=== PATIENT | male | born 1975 | race Caucasian/White ===

== ENCOUNTER 2021-05-16 11:58 | Day surgery (SDC) | payer BC ==
[2021-05-16] MEDS ORDERED: Sodium Chloride 0.9(Preservative Free) 10 ML IJ ONE (11:59)
[2021-05-16] MEDS ORDERED: Depo-Medrol 40 MG/ML IM ONE (11:59)
[2021-05-16] MEDS ORDERED: DIPRIVAN 200 MG/20 ML IV ONE (13:55)
--- NOTE | 2021-05-16 15:09 | XRAY ---
Indication: Right L4-S1 transforaminal REEMA. Intraoperative fluoroscopy provided for 30 seconds. 2 digital spot image submitted for interpretation demonstrates posterior needle tips projecting over the expected right L4 and L5 nerve roots. Small amount of contrast injected for needle tip placement. Correlate with intraoperative findings/report.
[2021-05-16] MEDS ORDERED: Lactated Ringers 1,000 ML IV ONE (15:33)
--- NOTE | 2021-05-16 16:50 | XRAY ---
30 seconds fluoroscopy time in surgery for right L4-S1 transforaminal REEMA.
== END 2021-05-16 14:25 | disposition home or self-care (01) ==
LOC: SDC-PAIN 11:58
PROVIDERS: ATTEND Psychiatry & Neurology Pain Medicine
DX: M54.16 Radiculopathy, lumbar region (principal); D64.9 Anemia, unspecified; J44.9 Chronic obstructive pulmonary disease, unspecified; I10 Essential (primary) hypertension; E78.5 Hyperlipidemia, unspecified; Z79.899 Other long term (current) drug therapy
CPT/HCPCS: 64483; 64484; 72100; 77003; J1030; J2704; Q9966

== ENCOUNTER 2021-12-13 09:07 | Emergency (ER) | payer BC, OTHER ==
[2021-12-13 09:26] VITALS: O2SAT 99
[2021-12-13] MEDS ORDERED: TYLENOL 325 MG PO ONE (09:44)
--- NOTE | 2021-12-13 09:50 | ERPHSYRPT ---
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 when an as sociate pushed a pallete and it was not seen by the pt and his left ankle hit it and he fell backwards and landed on the concrete hitting his head, pt's head, back, right elbow and the back of his left leg hurt Triage Nursing Assessment: Pt was brought to the ER by [facility] management, vitals wnl, rates overall pain as 5/10, small lump on top back of head, no bruising noted anywhere, back pain is noted to be lower to middle portion, denies LOC, denies N&V, pt does have a headache, doesn't appear to be in any distress Physician History: 46 years old presented in the ER with a chief complaint of fall and injury to the head and\right elbow. Patient reports he was working at [facility] and accidentally got tripped after a pallet hit him on his left leg leading to fall backward hitting his head against the concrete. Complaining of mild to moderate headache of the occipitoparietal area with some pain in the mid and lower back and right elbow which he hit against the ground and has history of surgical intervention in the past. Denies loss of consciousness. No nausea or vomiting, no confusion or altered mentation. Denies any chest pain palpitations or shortness of breath. Occurred: just prior to arrival Reason for Fall: tripped, fell from standing pos Injuries/Pain Location: head, upper extremity, back Loss of Consciousness: no loss of consciousness Quality: sharpness Severity of Pain-Max: moderate Severity of Pain-Current: mild Modifying Factors: Worsens With: movement Associated Symptoms (Fall): back pain, extremity injury, headache, muscle spasms, No confusion, No chest pain, No dizziness, No lightheadedness, No nausea, No neck pain, No ringing in ears, No seizures, No shortness of breath, No slurred speech, No trouble walking, No vomiting, No vision changes Allergies/Adverse Reactions: acetaminophen [From Vicodin] Allergy (Verified 12/13/21 09:26) hydrocodone [From Vicodin] Allergy (Verified 12/13/21 09:26) Home Medications: Atorvastatin Calcium 10 mg PO DAILY 12/13/21 [History] Duloxetine HCl 60 mg PO DAILY 12/13/21 [History] Fluticasone Propion/Salmeterol [Fluticasone-Salmeterol 500-50] 1 inh PO UD 12/13/21 [History] Losartan/Hydrochlorothiazide [Losartan-Hctz 50-12.5 mg Tab] 1 each PO DAILY 12/13/21 [History] Phentermine HCl 37.5 mg PO DAILY 12/13/21 [History] Sertraline HCl 50 mg [Zoloft 50 mg Tablet] 100 mg PO DAILY 12/13/21 [History] Travel Risk - International Travel Have you traveled outside of the country in past 3 weeks: No - Coronavirus Screening Are you exhibiting any of the following symptoms?: No Close contact with a COVID-19 positive Pt in past 14-21 Days: No - Vaccine Status Have you recieved a Covid-19 vaccination: Yes [employer]: [employer] - Vaccination Dates Date of 2cond Vaccination (if applicable): 04/2021 - Review of Systems Constitutional: No Symptoms Eyes: No Symptoms Ears, Nose, & Throat: No Symptoms Respiratory: No Symptoms Cardiac: No Symptoms Abdominal/Gastrointestinal: No Symptoms Genitourinary Symptoms: No Symptoms Musculoskeletal: Back Pain, Fall, Injury, Joint Redness, Joint Pain Skin: No Symptoms Neurological: Headache Psychological: No Symptoms Endocrine: No Symptoms Hematologic/Lymphatic: No Symptoms Immunological/Allergic: No Symptoms - Past Medical History Pertinent Past Medical History: Yes Cardiac History: High Cholesterol, Hypertension Respiratory History: COPD Musculoskeletal History: Arthritis GI Medical History: GERD Psycho-Social History: Anxiety - Past Surgical History Past Surgical History: Yes Gastrointestinal: Cholecystectomy Musculoskeletal: Joint Replacement - Social History Smoking Status: Current every day smoker Exposure to second hand smoke: Yes Drug Use: none Patient Lives Alone: Yes - Nursing Vital Signs Nursing Vital Signs: Initial Vital Signs Temperature 97.5 F 12/13/21 09:13 Pulse Rate 72 12/13/21 09:13 Blood Pressure 124/80 12/13/21 09:13 O2 Sat by Pulse Oximetry 99 12/13/21 09:13 Pain Scale Pain Intensity 5 - Francheska Coma Score Best Eye Response (Francheska): (4) open spontaneously Best Verbal Response (Francheska): (5) oriented Best Motor Response (Francheska): (6) obeys commands Welch Total: 15 - Physical Exam General Appearance: no apparent distress, alert Head Injury: contusions, tenderness (12 occipitoparietal area in the middle ), No active bleeding, No Edwards's Sign, No raccoon eyes, No swelling Eye Exam: PERRL/EOMI, eyes nml inspection ENT Exam: airway nml, No evidence of ENT injury, No dental injury Neck Exam: supple, trachea midline, full range of motion, normal alignment, normal inspection Respiratory/Chest Exam: normal breath sounds, respiratory distress, No chest tenderness Cardiovascular Exam: normal heart sounds, regular rate/rhythm Gastrointestinal Exam: soft, normal bowel sounds, No tenderness Back Exam: normal inspection, vertebral tenderness (Thoracic and lumbar spinal with some paraspinal tenderness.), muscle spasm, point tenderness Extremity Exam: normal inspection, normal range of motion, capillary refill <3 sec Neurologic Exam: alert, oriented x 3, cooperative, 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, normal mood/affect, nml cerebellar function, nml station & gait, sensation nml Skin Exam: normal color SpO2 Interpretation: normal SpO2: 99 O2 Delivery: Room Air Ordered Tests: Active Orders 24 hr Category Date Time Status CERVICAL SPINE WO CONTRAST [CT] Stat Exams 12/13/21 09:44 Completed ELBOW (MINIMUM 3 VIEWS) Stat Exams 12/13/21 Completed HEAD WITHOUT CONTRAST [CT] Stat Exams 12/13/21 09:44 Completed LUMBAR SPINE W/O [CT] Stat Exams 12/13/21 09:43 Taken THORACIC SPINE W/O CONTRAST [CT] Stat Exams 12/13/21 09:44 Taken Medication Summary Discontinued Medications Generic Name Dose Route Start Last Admin Trade Name Zenon PRN Reason Stop Dose Admin Acetaminophen 975 mg 12/13/21 09:44 12/13/21 10:06 Acetaminophen 325 Mg Tablet PO 12/13/21 09:45 975 mg STAT ONE Administration Acetaminophen Confirm 12/13/21 10:04 Acetaminophen 325 Mg Tablet Administered 12/13/21 10:05 Dose 975 mg .ROUTE .STK-MED ONE - Progress Progress: improved Progress Note: 12/13/21 10:44 Given Tylenol for symptomatic relief. Patient has nonfocal neuro exam. CT head/cervical/thoracic and lumbar spine negative for any acute trauma related findings. Negative imaging of right elbow for acute injury. Recommended Tylenol take as needed, ice intermittently and outpatient follow-up. Discussed signs symptoms of worsening/head injury needing return to ER which he seems understanding. Counseled pt/family regarding: diagnosis, need for follow-up, rad results - Departure Departure Disposition: Home Clinical Impression: Scalp contusion, Back strain, Elbow contusion Fall Qualifiers: Encounter type: initial encounter Qualified Code(s): W19.XXXA - Unspecified fall, initial encounter Condition: Stable Critical Care Time: No Referrals: ALFONSO SHANE, [facility] [Primary Care Provider] - Follow up/PCP as directed (1-2 days for reevaluation) Instructions: Head Injury Observation (DC), Concussion, Adult (DC) Additional Instructions: Follow head injury/concussion instructions and return to ER for any worsening. Take Tylenol as needed for headache. Intermittent ice. Follow-up with primary care for reevaluation.
[2021-12-13] MEDS ORDERED: TYLENOL 325 MG ONE (10:04)
--- NOTE | 2021-12-13 10:39 | XRAY ---
Indication: Pain following fall. Comparison: None 3 view right elbow demonstrates old proximal ulna/olecranon process fracture with intact fixation plate/screws. No other bony, articular, or soft tissue abnormalities.
--- NOTE | 2021-12-13 10:41 | XRAY ---
Indication: Pain following fall. Multiple contiguous axial images obtained through the head without contrast. Comparison: None Age-appropriate global atrophy and minimal periventricular degenerative micro-ischemia. No acute intracranial hemorrhage, abnormal extra-axial fluid collection, or mass effect. Fourth ventricle is midline without hydrocephalus. Bony calvarium intact. Visualized paranasal sinuses and mastoid air cells are clear. Impression: Atrophy and degenerative micro-ischemia within normal limits for patient's age. No acute intracranial abnormalities.
--- NOTE | 2021-12-13 10:43 | XRAY ---
Indication: Pain following fall. Multiple contiguous axial images obtained through the cervical spine. Sagittal and coronal reformatted images obtained. Comparison: None Axial images negative for acute fracture, suspicious bony lesions, or spinal canal stenosis. Facets are symmetric. Sagittal and coronal reformatted images demonstrates normal alignment with vertebral body heights/disc spaces maintained. No acute compression fracture, subluxation, or jumped facet. Normal appearing craniocervical junction. Visualized noncontrasted soft tissues including lung apices are unremarkable. Impression: Normal CT cervical spine.
--- NOTE | 2021-12-13 10:45 | XRAY ---
Indication: Pain following fall. Multiple contiguous axial images obtained through the lumbar spine. Sagittal and coronal reformatted images obtained. Comparison: None Axial images negative for acute fracture, suspicious bony lesions, or spinal canal stenosis. Minimal T10-L1 anterior endplate spurring and minimal T10-T12 degenerative vacuum disc phenomena. Facets are symmetric. Sagittal and coronal reformatted images demonstrates normal alignment with vertebral body heights/disc spaces maintained. No acute compression fracture or subluxation. Visualized noncontrasted soft tissues demonstrates minimal aortoiliac calcifications. Impression: 1. Minimal multilevel thoracolumbar degenerative changes and minimal arteriosclerotic calcifications. 2. Remaining CT lumbar spine is negative.
--- NOTE | 2021-12-13 10:49 | XRAY ---
Indication: Pain following fall. Multiple contiguous axial images obtained through the thoracic spine. Sagittal and coronal reformatted images obtained. Comparison: None Axial images negative for acute fracture, suspicious bony lesions, or spinal canal stenosis. Minimal T10-L1 anterior endplate spurring and minimal T10-T12 degenerative vacuum disc phenomena. Facets are symmetric. Sagittal and coronal reformatted images demonstrates normal alignment with vertebral body heights/disc spaces maintained. No acute compression fracture or subluxation. Visualized noncontrasted soft tissues are unremarkable. Impression: 1. Minimal thoracolumbar degenerative changes. 2. Remaining CT thoracic spine is negative.
[2021-12-13 11:52] VITALS: BP 133/80; PULSE 79
== END 2021-12-13 11:52 | disposition home or self-care (01) ==
LOC: ED 09:07
DX: S00.03XA Contusion of scalp, initial encounter (principal); S50.01XA Contusion of right elbow, initial encounter; S39.012A Strain of muscle, fascia and tendon of lower back, initial encounter; S29.012A Strain of muscle and tendon of back wall of thorax, initial encounter; W01.198A Fall on same level from slipping, tripping and stumbling with subsequent striking against other object, initial encounter; Y92.512 Supermarket, store or market as the place of occurrence of the external cause; Y99.0 Civilian activity done for income or pay; E78.5 Hyperlipidemia, unspecified; I10 Essential (primary) hypertension; J44.9 Chronic obstructive pulmonary disease, unspecified; K21.9 Gastro-esophageal reflux disease without esophagitis; Z72.0 Tobacco use; Z79.899 Other long term (current) drug therapy
CPT/HCPCS: 70450; 72125; 72128; 72131; 73080; 99284; A9270-GY

== ENCOUNTER 2023-09-17 13:13 | Day surgery (SDC) | payer BC ==
[2023-09-17] MEDS ORDERED: Depo-Medrol 40 MG/ML IM ONE (13:14)
[2023-09-17] MEDS ORDERED: Sodium Chloride 0.9(Preservative Free) 10 ML IJ ONE (13:14)
[2023-09-17] MEDS ORDERED: DIPRIVAN 200 MG/20 ML IV ONE (15:02)
[2023-09-17] MEDS ORDERED: Lactated Ringers 1,000 ML IV ONE (15:37)
--- NOTE | 2023-09-17 16:45 | XRAY ---
Indication: Right L4-S1 transforaminal REEMA. Intraoperative fluoroscopy provided for 32 seconds. 6 digital spot image submitted for interpretation demonstrates posterior needle tips projecting over the expected right L4 and L5 nerve roots. Small amount of contrast injected for needle tip placement. Correlate with intraoperative findings/report.
--- NOTE | 2023-09-17 16:48 | XRAY ---
32 seconds of fluoroscopy was used in surgery for a right L4-S1 transforaminal REEMA.
== END 2023-09-17 15:33 | disposition home or self-care (01) ==
LOC: SDC-PAIN 13:13
PROVIDERS: ATTEND Psychiatry & Neurology Pain Medicine
DX: M47.816 Spondylosis without myelopathy or radiculopathy, lumbar region (principal); Z79.899 Other long term (current) drug therapy
CPT/HCPCS: 64483; 64484; 72100; 77003; J1030; J2704; Q9966

== ENCOUNTER 2023-10-29 14:10 | Day surgery (SDC) | payer BC ==
[2023-10-29] MEDS ORDERED: XYLOCAINE-MPF 1% 5ML SDV IJ ONE (14:11)
[2023-10-29] MEDS ORDERED: Depo-Medrol 40 MG/ML IM ONE (14:11)
[2023-10-29] MEDS ORDERED: BUPIVACAINE 0.5% VIAL IJ ONE (14:11)
--- NOTE | 2023-10-29 19:26 | XRAY ---
Indication: Left shoulder and subacromial bursa injection. Intraoperative fluoroscopy provided for 52 seconds. 3 digital spot image submitted for interpretation demonstrates needle tip projecting over left glenohumeral joint superiorly. Second needle tip subacromial. Small amount of contrast injected for both needle tip placement. Correlate with intraoperative findings/report.
--- NOTE | 2023-10-30 08:59 | XRAY ---
52 seconds of fluoroscopy was used in surgery for a left intra-articular shoulder and subacromial bursa injection.
== END 2023-10-29 17:12 | disposition home or self-care (01) ==
LOC: SDC-PAIN 14:10
PROVIDERS: ATTEND Psychiatry & Neurology Pain Medicine
DX: M19.012 Primary osteoarthritis, left shoulder (principal); M75.52 Bursitis of left shoulder; Z79.899 Other long term (current) drug therapy
CPT/HCPCS: 20610; 73030; 77002; J1030; Q9966